=== PATIENT | female | born 1970 | race Caucasian/White ===

== ENCOUNTER 2016-06-29 07:06 | Emergency (ER) | payer SELFPAY ==
--- NOTE | 2016-06-29 17:49 | ER ---
ADMIT: 06/29/2016 RM/LOC: ER [facility] MR#: [id number] [id number] [place] [address] Emergency Room Report SEX: F AGE: 45 : 1970 DATE: 06/29/2016 TIME: 0706 hours. Please refer to my T-sheet for complete H and P. Briefly, the patient is a 45-year-old, comes in with leg swelling, face swelling, and not feeling well. She has not been taking her diabetic medications for 3 weeks. It has been going on for the last 3 days. PHYSICAL EXAMINATION: VITAL SIGNS: Blood pressure 123/72, pulse 80, respirations 19, temp 97.4, sat 97%. GENERAL: She is in no acute distress. HEENT: Grossly normal. LUNGS: Clear. HEART: Regular. ABDOMEN: Soft. SKIN: No rash. EMERGENCY DEPARTMENT COURSE: Uneventful. Her Accu-Chek glucose was 165. We did CBC it was normal except white count 10.6. Chemistries normal except glucose 130. EKG was sinus rhythm, rate 70, no changes. I had a long discussion. She was ready for discharge. ASSESSMENT: 1. General weakness. 2. Medication noncompliance. PLAN: Pharmacies are not open yet, but we will call in her oral hypoglycemics, have her go pick them up. Return if worse. Take Benadryl over the counter. Follow up with Dr. Moore this week to recheck. Filippo Cole MD/ hollie JOB #: [id number] CC: Filippo Cole MD, Attending Physician Georgia Gamboa, Family Physician
== END 2016-06-29 08:46 | disposition home or self-care (01) ==
LOC: ER 07:06
DX: R53.1 Weakness (principal); Z91.14 Patient's other noncompliance with medication regimen; E11.9 Type 2 diabetes mellitus without complications; Z90.49 Acquired absence of other specified parts of digestive tract; Z79.84 Long term (current) use of oral hypoglycemic drugs